=== PATIENT | female | born 1995 | race African-American/Black ===

== ENCOUNTER 2017-12-06 06:36 | Inpatient (IN) | payer MEDICAID ==
[~2017-12-06] VITALS: Ht 165.1 cm; Wt 77.1 kg
[2017-12-06 06:40] VITALS: BP 124/76
[2017-12-06] MEDS ORDERED: levETIRAcetam 500mg/NS100ml 100 ML IVPB ONE (06:45)
[2017-12-06] MEDS ORDERED: LORazepam Inj 2mg/ml 1ml IV ONE (06:45)
[2017-12-06 06:48] LABS: HEMATOCRIT 43.5 % (37.0-47.0); HEMOGLOBIN 14.7 G/DL (12.0-16.0); MEAN CORPUSCULAR VOLUME 89 FL (80-99); PLATELET COUNT 307 K/UL (150-450); RED BLOOD COUNT 4.87 M/UL (4.20-5.40); RED CELL DISTRIBUTION WIDTH 12.1 % (11.6-14.8); WHITE BLOOD COUNT 12.8 K/UL (4.8-10.8)
[2017-12-06 07:06] LABS: ANION GAP 7 mmol/L (5-15); BLOOD UREA NITROGEN 15 mg/dL (7-18); CALCIUM 8.8 MG/DL (8.5-10.1); CARBON DIOXIDE 29 MMOL/L (21-32); CHLORIDE 104 MMOL/L (98-107); CREATININE 0.8 MG/DL (0.55-1.30); POTASSIUM 3.8 MMOL/L (3.5-5.1); SODIUM 140 MMOL/L (136-145)
[2017-12-06 07:11] LABS: ALANINE AMINOTRANSFERASE 35 U/L (12-78); ALBUMIN 3.7 G/DL (3.4-5.0); ALKALINE PHOSPHATASE 82 U/L (46-116); ASPARTATE AMINO TRANSFERASE 20 U/L (15-37); BILIRUBIN,TOTAL 0.4 MG/DL (0.2-1.0); CKMB 1.9 NG/ML (0.0-3.6); CREATINE KINASE 261 U/L (26-308)
--- NOTE | 2017-12-06 08:22 | Diagnostic Imaging Report ---
Indication: Shortness of breath Technique: XRAY Chest 1v Comparison: None Findings: Heart is enlarged with somewhat globular contour. There is no focal airspace consolidation, pleural effusion or pneumothorax. No acute osseous abnormality appreciated. Impression: Cardiomegaly. Pericardial effusion cannot be excluded. Correlate clinically. No focal airspace consolidation.
[2017-12-06 08:26] LABS: APPEARANCE,URINE CLEAR; BILIRUBIN, URINE NEGATIVE (NEGATIVE); COLOR,URINE PALE YELLOW; GLUCOSE, URINE (UA) NEGATIVE (NEGATIVE); KETONES,URINE 2+ (NEGATIVE); LEUKOCYTE ESTERASE ,URINE NEGATIVE (NEGATIVE); NITRITE,URINE NEGATIVE (NEGATIVE); PH,URINE 8 (4.5-8.0); PROTEIN,URINE NEGATIVE (NEGATIVE); UROBILINOGEN,URINE NORMAL MG/DL (0.0-1.0)
--- NOTE | 2017-12-06 08:26 | Diagnostic Imaging Report ---
Indication: Seizure Technique: Continuous helical CT scanning of the head was performed utilizing automated exposure control without intravenous contrast material. Axial and coronal reconstructions were obtained. Comparison: None CT dose: Total DLP 1393.68 mGycm; CTDI vol 70.38 mGy Findings: There is no acute intracranial hemorrhage, mass effect or cortical edema. The ventricles, cisterns and sulci are normal for age. Visualized mastoid air cells and paranasal sinuses are unremarkable. No focal lesions of the bony calvarium or soft tissues of the scalp are seen. IMPRESSION: No evidence of acute intracranial hemorrhage, mass effect or cortical edema. MRI may be obtained for more sensitive evaluation as clinically indicated. The CT scanner at [facility] is accredited by the [employer] and the scans are performed using protocols designed to limit radiation exposure to as low as reasonably achievable to attain images of sufficient resolution adequate for diagnostic evaluation.
[2017-12-06 09:00] VITALS: BP 121/72
--- NOTE | 2017-12-06 09:58 | Emergency Room Report ---
History of Present Illness General Chief Complaint: Seizure Source: Patient, EMS Present Illness HPI Patient present with reports of seizure activity She reports being seen yesterday at another hospital She has a history of seizures and is on Keppra Patient had 2 more seizures at the facility she resides in Had another seizure this morning at the hospital Denies any chest pain or short of breath She had a mild headache patient also had trauma to her head after the injury today Denies any focal deficit Allergies: Coded Allergies: No Known Allergies (Unverified , 12/06/17) Patient History Past Medical History: see triage record Pertinent Family History: none Reviewed Nursing Documentation: PMH: Agreed, PSxH: Agreed Nursing Documentation-PMH Past Medical History: No History, Except For Hx Seizures: Yes Review of Systems All Other Systems: negative except mentioned in HPI Physical Exam Vital Signs Date Time Temp Pulse Resp B/P (MAP) Pulse Ox O2 Delivery O2 Flow Rate FiO2 12/06/17 06:12 99.0 88 16 124/76 99 Room Air 99.0 Sp02 EP Interpretation: reviewed, normal General Appearance: well appearing, no apparent distress Head: normocephalic, atraumatic Eyes: bilateral eye PERRL, bilateral eye EOMI ENT: hearing grossly normal, TMs + canals normal, uvula midline, other - Evidence of oral trauma Neck: full range of motion, supple, no meningismus, no bony tend Respiratory: lungs clear, normal breath sounds, no rhonchi, no respiratory distress, no retraction, no accessory muscle use Cardiovascular #1: normal peripheral pulses, regular rate, rhythm, no edema, no gallop, no JVD, no murmur Gastrointestinal: normal bowel sounds, non tender, soft, no mass, no organomegaly, non-distended, no guarding, no hernia, no pulsatile mass, no rebound Genitourinary: no CVA tenderness Musculoskeletal: normal inspection Neurologic: oriented x3, responsive, alto singer III-XII nml as tested, motor strength/ tone normal, sensory intact Psychiatric: mood/affect normal Skin: normal color, no rash, warm/dry, palpation normal Lymphatic: normal inspection, no adenopathy Medical Decision Making Diagnostic Impression: Primary Impression: Epileptic seizure, generalized ER Course Given the patient's trauma and multiple seizures CT imaging was obtained Does not show any acute pathology Patient was provided with IV medication Blood work are appropriate and patient admitted for further care Labs Test 12/06/17 06:30 12/06/17 08:15 White Blood Count 12.8 K/UL (4.8-10.8) Red Blood Count 4.87 M/UL (4.20-5.40) Hemoglobin 14.7 G/DL (12.0-16.0) Hematocrit 43.5 % (37.0-47.0) Mean Corpuscular Volume 89 FL (80-99) Mean Corpuscular Hemoglobin 30.2 PG (27.0-31.0) Mean Corpuscular Hemoglobin Concent 33.8 G/DL (32.0-36.0) Red Cell Distribution Width 12.1 % (11.6-14.8) Platelet Count 307 K/UL (150-450) Mean Platelet Volume 5.7 FL (6.5-10.1) Neutrophils (%) (Auto) % (45.0-75.0) Lymphocytes (%) (Auto) % (20.0-45.0) Monocytes (%) (Auto) % (1.0-10.0) Eosinophils (%) (Auto) % (0.0-3.0) Basophils (%) (Auto) % (0.0-2.0) Differential Total Cells Counted 100 Neutrophils % (Manual) 90 % (45-75) Lymphocytes % (Manual) 6 % (20-45) Monocytes % (Manual) 4 % (1-10) Eosinophils % (Manual) 0 % (0-3) Basophils % (Manual) 0 % (0-2) Band Neutrophils 0 % (0-8) Platelet Estimate Adequate Platelet Morphology Normal Red Blood Cell Morphology Normal Sodium Level 140 MMOL/L (136-145) Potassium Level 3.8 MMOL/L (3.5-5.1) Chloride Level 104 MMOL/L (98-107) Carbon Dioxide Level 29 MMOL/L (21-32) Anion Gap 7 mmol/L (5-15) Blood Urea Nitrogen 15 mg/dL (7-18) Creatinine 0.8 MG/DL (0.55-1.30) Estimat Glomerular Filtration Rate > 60 mL/min (>60) Glucose Level 131 MG/DL (74-106) Calcium Level 8.8 MG/DL (8.5-10.1) Total Bilirubin 0.4 MG/DL (0.2-1.0) Aspartate Amino Transf (AST/SGOT) 20 U/L (15-37) Alanine Aminotransferase (ALT/SGPT) 35 U/L (12-78) Alkaline Phosphatase 82 U/L (46-116) Total Creatine Kinase 261 U/L (26-308) Creatine Kinase MB 1.9 NG/ML (0.0-3.6) Creatine Kinase MB Relative Index 0.7 Total Protein 7.5 G/DL (6.4-8.2) Albumin 3.7 G/DL (3.4-5.0) Globulin 3.8 g/dL Albumin/Globulin Ratio 1.0 (1.0-2.7) Lipase 70 U/L (73-393) Urine Color Pale yellow Urine Appearance Clear Urine pH 8 (4.5-8.0) Urine Specific [place] 1.010 (1.005-1.035) Urine Protein Negative (NEGATIVE) Urine Glucose (UA) Negative (NEGATIVE) Urine Ketones 2+ (NEGATIVE) Urine Occult Blood 1+ (NEGATIVE) Urine Nitrite Negative (NEGATIVE) Urine Bilirubin Negative (NEGATIVE) Urine Urobilinogen Normal MG/DL (0.0-1.0) Urine Leukocyte Esterase Negative (NEGATIVE) Urine RBC 0-2 /HPF (0 - 2) Urine WBC 0-2 /HPF (0 - 2) Urine Squamous Epithelial Cells Few /LPF (NONE/OCC) Urine Bacteria Occasional /HPF (NONE) Urine HCG, Qualitative Negative (NEGATIVE) Urine Opiates Screen Negative (NEGATIVE) Urine Barbiturates Screen Negative (NEGATIVE) Phencyclidine (PCP) Screen Negative (NEGATIVE) Urine Amphetamines Screen Negative (NEGATIVE) Urine Benzodiazepines Screen Negative (NEGATIVE) Urine Cocaine Screen Negative (NEGATIVE) Urine Marijuana (THC) Screen Positive (NEGATIVE) Rhythm Strip Diag. Results EP Interpretation: yes Rate: 78 Rhythm: NSR, no PVC's, no ectopy Chest X-Ray Diagnostic Results Chest X-Ray Diagnostic Results : Chest X-Ray Ordered: Yes # of Views/Limited/Complete: 1 View Indication: Chest Pain EP Interpretation: Yes Interpretation: no consolidation, no effusion, no pneumothorax Impression: No acute disease Electronically Signed by: Gus Arevalo, DO CT/MRI/US Diagnostic Results CT/MRI/US Diagnostic Results : Impression CT head no acute disease Last Vital Signs Date Time Temp Pulse Resp B/P (MAP) Pulse Ox O2 Delivery O2 Flow Rate FiO2 12/06/17 06:40 99.0 88 16 124/76 99 Room Air 99.0 Status: improved Disposition: ADMITTED INPATIENT Condition: Serious Referrals: NOT CHOSEN IPA/,REFERRING (PCP) Gus Arevalo DO Dec 06, 2017 09:58
[2017-12-06 10:51] VITALS: BP 117/80
[2017-12-06 12:00] VITALS: BP 108/62
[2017-12-06] MEDS ORDERED: D5 1/2NS 1,000 ML IV SCH (12:30)
[2017-12-06] MEDS: D5 1/2NS 1,000 ML IV SCH (14:46)
[2017-12-06 16:00] VITALS: BP 98/70
--- NOTE | 2017-12-06 16:15 | Neurology Progress Note ---
Objective Physical Exam Last Vital Signs Date Time Temp Pulse Resp B/P (MAP) Pulse Ox O2 Delivery O2 Flow Rate FiO2 12/06/17 12:00 98.2 89 19 108/62 100 98.2 12/06/17 11:22 Room Air Laboratory Tests Test 12/06/17 06:30 12/06/17 08:15 White Blood Count 12.8 K/UL (4.8-10.8) H Red Blood Count 4.87 M/UL (4.20-5.40) Hemoglobin 14.7 G/DL (12.0-16.0) Hematocrit 43.5 % (37.0-47.0) Mean Corpuscular Volume 89 FL (80-99) Mean Corpuscular Hemoglobin 30.2 PG (27.0-31.0) Mean Corpuscular Hemoglobin Concent 33.8 G/DL (32.0-36.0) Red Cell Distribution Width 12.1 % (11.6-14.8) Platelet Count 307 K/UL (150-450) Mean Platelet Volume 5.7 FL (6.5-10.1) L Neutrophils (%) (Auto) % (45.0-75.0) Lymphocytes (%) (Auto) % (20.0-45.0) Monocytes (%) (Auto) % (1.0-10.0) Eosinophils (%) (Auto) % (0.0-3.0) Basophils (%) (Auto) % (0.0-2.0) Differential Total Cells Counted 100 Neutrophils % (Manual) 90 % (45-75) H Lymphocytes % (Manual) 6 % (20-45) L Monocytes % (Manual) 4 % (1-10) Eosinophils % (Manual) 0 % (0-3) Basophils % (Manual) 0 % (0-2) Band Neutrophils 0 % (0-8) Platelet Estimate Adequate Platelet Morphology Normal Red Blood Cell Morphology Normal Sodium Level 140 MMOL/L (136-145) Potassium Level 3.8 MMOL/L (3.5-5.1) Chloride Level 104 MMOL/L (98-107) Carbon Dioxide Level 29 MMOL/L (21-32) Anion Gap 7 mmol/L (5-15) Blood Urea Nitrogen 15 mg/dL (7-18) Creatinine 0.8 MG/DL (0.55-1.30) Estimat Glomerular Filtration Rate > 60 mL/min (>60) Glucose Level 131 MG/DL (74-106) H Calcium Level 8.8 MG/DL (8.5-10.1) Total Bilirubin 0.4 MG/DL (0.2-1.0) Aspartate Amino Transf (AST/SGOT) 20 U/L (15-37) Alanine Aminotransferase (ALT/SGPT) 35 U/L (12-78) Alkaline Phosphatase 82 U/L (46-116) Total Creatine Kinase 261 U/L (26-308) Creatine Kinase MB 1.9 NG/ML (0.0-3.6) Creatine Kinase MB Relative Index 0.7 Total Protein 7.5 G/DL (6.4-8.2) Albumin 3.7 G/DL (3.4-5.0) Globulin 3.8 g/dL Albumin/Globulin Ratio 1.0 (1.0-2.7) Lipase 70 U/L (73-393) L Urine Color Pale yellow Urine Appearance Clear Urine pH 8 (4.5-8.0) Urine Specific [place] 1.010 (1.005-1.035) Urine Protein Negative (NEGATIVE) Urine Glucose (UA) Negative (NEGATIVE) Urine Ketones 2+ (NEGATIVE) H Urine Occult Blood 1+ (NEGATIVE) H Urine Nitrite Negative (NEGATIVE) Urine Bilirubin Negative (NEGATIVE) Urine Urobilinogen Normal MG/DL (0.0-1.0) Urine Leukocyte Esterase Negative (NEGATIVE) Urine RBC 0-2 /HPF (0 - 2) Urine WBC 0-2 /HPF (0 - 2) Urine Squamous Epithelial Cells Few /LPF (NONE/OCC) Urine Bacteria Occasional /HPF (NONE) Urine HCG, Qualitative Negative (NEGATIVE) Urine Opiates Screen Negative (NEGATIVE) Urine Barbiturates Screen Negative (NEGATIVE) Phencyclidine (PCP) Screen Negative (NEGATIVE) Urine Amphetamines Screen Negative (NEGATIVE) Urine Benzodiazepines Screen Negative (NEGATIVE) Urine Cocaine Screen Negative (NEGATIVE) Urine Marijuana (THC) Screen Positive (NEGATIVE) H Impression/Recommendations Problems: (1) Epileptic seizure, generalized Recommendations #[id number] MICHELINE PARKER Dec 06, 2017 16:15
--- NOTE | 2017-12-06 19:30 | History and Physical Report ---
DATE OF ADMISSION: 12/06/2017 APPROXIMATE TIME: 9 a.m. CONSULTANTS: Moncho Rodarte M.D. CHIEF COMPLAINT: Seizure x4. BRIEF HISTORY: The patient is a 22-year-old female, who lives at home, presents with seizure yesterday x4, currently postictal in the ER gurney, not talking much. Mother at bedside. REVIEW OF SYSTEMS: Unavailable. PAST MEDICAL HISTORY: Includes seizure. PAST SURGICAL HISTORY: None. MEDICATIONS: Include lorazepam, IV fluids. ALLERGIES: Denies. SOCIAL HISTORY: No smoking. No alcohol. No intravenous drug abuse. FAMILY HISTORY: Noncontributory. PHYSICAL EXAMINATION: GENERAL: Lethargic in bed, awake but not responding to questions. VITAL SIGNS: Temperature is 99, pulse 88, respirations 16, blood pressure 124/76. CARDIOVASCULAR: No murmur. LUNGS: Distant and clear. ABDOMEN: Bowel sound distant. Nontender and nondistended. EXTREMITIES: No cyanosis, clubbing, or edema. NEUROLOGIC: The patient moves all extremities. Right knee movement but not following directions. LABORATORY AND DIAGNOSTIC DATA: White count 12.8, otherwise CBC is normal. BMP shows glucose 131 and lipase 70, otherwise normal. Urinalysis 2+ ketone, 1+ occult blood, otherwise normal. Urine toxicology is positive marijuana. ASSESSMENT: 1. Seizure, postictal. 2. Leukocytosis. PLAN: 1. Continue previous medications. 2. Neurology followup. 3. Seizure control. 4. We will continue to follow this patient. 5. OT, PT, dietary evaluation. 6. CBC and BMP in the morning. Jeff Fraser D.O. DR: Gala JOB#: [id number] CC:
[2017-12-06] MEDS ORDERED: LORazepam Inj 2mg/ml 1ml IV PRN (19:45)
[2017-12-06 21:00] VITALS: BP 123/70
--- NOTE | 2017-12-06 23:30 | Consultation ---
DATE OF CONSULTATION: 12/06/2017 NEUROLOGICAL CONSULTATION CONSULTING PHYSICIAN: Moncho Rodarte M.D. REQUESTING PHYSICIAN: Jeff Fraser D.O. REASON FOR CONSULTATION: This is a 22-year-old female, seen in neurological consultation to evaluate exacerbation of seizure disorder. HISTORY OF PRESENT ILLNESS: The patient informed me that she is suffering from chronic seizure disorder since age of 16, initially only "small" episodes, but in the last few months, they became more frequent, "generalized" with convulsions, loss of consciousness, and tongue biting. Yesterday while at the front apartment, she developed two generalized seizures. Paramedics were called to the scene and upon [facility] arrival, she was postictal with tongue bitten, possible incontinence, she was oriented x3, she had no complaints of pain. Her blood pressure 142/88, heart rate of 116, respiration 14. She was brought to the emergency room where she reported that she has been seen at [facility] as she had two seizures. On arrival, she had mild headache, her vital signs remained stable, temperature 99. Stat CT of the brain was obtained and revealed no intracranial abnormalities. Her lab work included a CBC study with WBC of 12.8, otherwise normal. Urinalysis unremarkable. Toxicology panel, positive for marijuana. Chemistry panel was unremarkable except blood sugar 131. Following admission until present, the patient was given extra dose of Keppra 500 mg IVPB, Ativan, placed on normal saline. No further seizure was reported. PAST MEDICAL HISTORY: The patient has no major medical problems except chronic seizure disorder which she attributed to the fact that she was born from drug-addict parents. Her mother from overdose. Her father still alive and lives in [place], he has drug abuse issue. SOCIAL HISTORY: The patient lives with her friends, unemployed, she dropped out from senior school classes because "it was useless." She felt that she has some memory issues. MEDICATIONS: The patient's previous treatment included Topamax and Lamictal, both causing her allergic reaction and rash. She has no recollection of other medications except now, she is on Keppra for the last month, she is on 500 mg b.i.d. Frequency of seizures overall about one per month. FAMILY HISTORY: As mentioned, both parents drug addicts. Mother from overdose. REVIEW OF SYMPTOMS: Aches and pains in her both lower extremities, bitten tongue. No headache. No dizziness. No chest pain. No palpitations. No respiratory problems. PHYSICAL EXAMINATION: GENERAL: A well-developed, well-nourished, young female, not in acute distress, lying comfortably in bed. VITAL SIGNS: Now are stable. Blood pressure 108/62, heart rate of 89, afebrile. HEENT: Head normocephalic: There is significant bitten both sides of the tongue. No otorrhea. No rhinorrhea. NECK: Supple. No meningeal signs. MUSCULOSKELETAL: Palpable tenderness diffusely in both lower extremities. The patient moans and groans when moving her legs . This occurred since she had a seizure. MENTAL STATUS EXAMINATION: The patient is alert and oriented x3. Her speech is fluent although somewhat slurred with bitten tongue. She is a poor historian, forgetful, admitted having problem with her memory since school. She was able to follow command. CRANIAL NERVE II: Pupils both responding to light and accommodation. Extraocular movements intact. No nystagmus. CRANIAL NERVE V: Normal corneal responses. CRANIAL NERVE VII: No facial asymmetry. CRANIAL NERVE VIII: Grossly normal hearing. CRANIAL NERVES IX THROUGH XII: Within normal limits. MOTOR EXAMINATION: Normal muscle tone and strength 5/5 in all extremities. No involuntary movement. Deep tendon reflexes 1+ and symmetric with downgoing toes on both sides. SENSORY EXAMINATION: Normal to pinprick and light touch. Gait not tested, but reported able to ambulate to the bathroom and back without assistance. IMPRESSION: Chronic seizure disorder exacerbation. DISCUSSION: The patient has baseline mild cognitive impairment and developed seizures since she was teenager, presents with recurrent generalized seizures what appears to be breakthrough from treatment with Keppra 500 mg b.i.d. We will observe for the following days. The patient had previous MRI studies which were nondiagnostic. The patient will be observed for any paroxysmal events. manager field services will request for the patient's placement. Thank you for allowing me to see this interesting patient in neurological consultation. Moncho Rodarte M.D. DR: Yomaira JOB#: [id number] CC:
[2017-12-07 04:00] VITALS: BP 109/54
[2017-12-07] MEDS: D5 1/2NS 1,000 ML IV SCH (05:05)
[2017-12-07 07:55] LABS: BASOPHILS % (AUTO) 0.4 % (0.0-2.0); EOSINOPHILS % (AUTO) 2.2 % (0.0-3.0); HEMATOCRIT 39.7 % (37.0-47.0); HEMOGLOBIN 13.5 G/DL (12.0-16.0); LYMPHOCYTES % (AUTO) 31.3 % (20.0-45.0); MEAN CORPUSCULAR VOLUME 89 FL (80-99); NEUTROPHILS % (AUTO) 57.1 % (45.0-75.0); PLATELET COUNT 273 K/UL (150-450); RED BLOOD COUNT 4.47 M/UL (4.20-5.40); RED CELL DISTRIBUTION WIDTH 12.1 % (11.6-14.8); WHITE BLOOD COUNT 7.2 K/UL (4.8-10.8)
[2017-12-07 08:00] VITALS: BP 106/60
[2017-12-07 08:21] LABS: ANION GAP 9 mmol/L (5-15); BLOOD UREA NITROGEN 8 mg/dL (7-18); CALCIUM 8.4 MG/DL (8.5-10.1); CARBON DIOXIDE 27 MMOL/L (21-32); CHLORIDE 106 MMOL/L (98-107); CREATININE 0.6 MG/DL (0.55-1.30); POTASSIUM 3.4 MMOL/L (3.5-5.1); SODIUM 142 MMOL/L (136-145)
--- NOTE | 2017-12-07 10:53 | Neurology Progress Note ---
Interim History Interim History ROS Limited/Unobtainable: No Complaints: abdomen,leg pain, slight PRO Events: no sz noted Objective Physical Exam Last Vital Signs Date Time Temp Pulse Resp B/P (MAP) Pulse Ox O2 Delivery O2 Flow Rate FiO2 12/07/17 08:00 97.7 88 20 106/60 96 97.7 12/07/17 00:00 Room Air Laboratory Tests Test 12/07/17 04:50 White Blood Count 7.2 K/UL (4.8-10.8) Red Blood Count 4.47 M/UL (4.20-5.40) Hemoglobin 13.5 G/DL (12.0-16.0) Hematocrit 39.7 % (37.0-47.0) Mean Corpuscular Volume 89 FL (80-99) Mean Corpuscular Hemoglobin 30.3 PG (27.0-31.0) Mean Corpuscular Hemoglobin Concent 34.1 G/DL (32.0-36.0) Red Cell Distribution Width 12.1 % (11.6-14.8) Platelet Count 273 K/UL (150-450) Mean Platelet Volume 6.1 FL (6.5-10.1) L Neutrophils (%) (Auto) 57.1 % (45.0-75.0) Lymphocytes (%) (Auto) 31.3 % (20.0-45.0) Monocytes (%) (Auto) 9.0 % (1.0-10.0) Eosinophils (%) (Auto) 2.2 % (0.0-3.0) Basophils (%) (Auto) 0.4 % (0.0-2.0) Sodium Level 142 MMOL/L (136-145) Potassium Level 3.4 MMOL/L (3.5-5.1) L Chloride Level 106 MMOL/L (98-107) Carbon Dioxide Level 27 MMOL/L (21-32) Anion Gap 9 mmol/L (5-15) Blood Urea Nitrogen 8 mg/dL (7-18) Creatinine 0.6 MG/DL (0.55-1.30) Estimat Glomerular Filtration Rate > 60 mL/min (>60) Glucose Level 93 MG/DL (74-106) Calcium Level 8.4 MG/DL (8.5-10.1) L Levetiracetam (Keppra) Level Pending General: well developed, no acute distress, other - tenderness BLE Head: normocophalic, other - R face bruized Neck: no rigidity Neurologic Exam Mental Status: awake, alert, other - poor historian Speech: normal speech, no dysarthia Language: normal language, no aphasia Cranial Nerve II: fundus normal, visual shaver, no papilledema Cranial Nerves III, IV, : PERRLA, EOMI, pupils Cranial Nerve V: normal facial sensations, temporales function normal, masseters function normal, pterygoids function normal Cranial Nerve VII: no facial asymmetry, normal facial expressions Cranial Nerve VIII: normal hearing, no nystagmus Cranial Nerve IX: normal palate elevation, gag response Cranial Nerve X: no voice hoarseness Cranial Nerve XI: SCM symmetric, trapezii function normal Cranial Nerve XII: tongue midline, no tongue atrophy/fasciculations Motor System: normal muscle tone, strength 5/5, no involuntary movement, no muscle wasting Sensory: normal pinprick, normal light touch, normal position sense, normal graphesthesia Coordination: normal finger to nose bilaterally, normal heel to finnegan bilaterally, negative Romberg test Deep Tendon Reflexes: 2+ bicep (L), 2+ bicep (R), 2+ tricep (L), 2+ tricep (R) , 2+ brachioradialis (L), 2+ brachioradialis (R), 2+ knee (L), 2+ knee (R), 2+ ankle (L), 2+ ankle (R) Reflexes: flexor plantar (L), flexor plantar (R) Stance: normal Gait: stable, normal regular, heel + toe gait, other - wabble antalgic Impression/Recommendations Problems: (1) Epileptic seizure, generalized Status: unchanged Recommendations # #[id number] bid motrin 600mg tid for pain MICHELINE PARKER Dec 07, 2017 10:53
[2017-12-07 11:35] VITALS: BP 103/60
--- NOTE | 2017-12-07 14:38 | General Progress Note ---
Assessment/Plan Problem List: (1) Epileptic seizure, generalized ICD Codes: G40.309 - Generalized idiopathic epilepsy and epileptic syndromes, not intractable, without status epilepticus SNOMED: 40434001 Status: stable, progressing, tolerating diet Assessment/Plan seizure control neuro follow up cbc bmp am dc if neuro clears Subjective Constitutional: Reports: weakness Allergies: Coded Allergies: No Known Allergies (Unverified , 12/06/17) All Systems: reviewed and negative except above Subjective calm no seizure this am Objective Last 24 Hour Vital Signs Date Time Temp Pulse Resp B/P (MAP) Pulse Ox O2 Delivery O2 Flow Rate FiO2 12/07/17 11:35 97.0 71 19 103/60 96 Room Air 97.0 12/07/17 08:00 Room Air 12/07/17 08:00 97.7 88 20 106/60 96 97.7 12/07/17 04:00 97.7 86 20 109/54 95 97.7 12/07/17 00:00 Room Air 12/06/17 21:00 97.7 88 16 123/70 95 97.7 12/06/17 20:00 Room Air 12/06/17 16:00 96.4 92 20 98/70 96 96.4 Intake and Output 12/06/17 12/07/17 19:00 07:00 Intake Total 1370 ml 720 ml Balance 1370 ml 720 ml Intake Oral 90 ml IV Total 1280 ml 720 ml # Voids 1 3 # Bowel Movements 1 Laboratory Tests 12/07/17 04:50: White Blood Count 7.2, Red Blood Count 4.47, Hemoglobin 13.5, Hematocrit 39.7, Mean Corpuscular Volume 89, Mean Corpuscular Hemoglobin 30.3, Mean Corpuscular Hemoglobin Concent 34.1, Red Cell Distribution Width 12.1, Platelet Count 273, Mean Platelet Volume 6.1L, Neutrophils (%) (Auto) 57.1, Lymphocytes (%) (Auto) 31.3, Monocytes (%) (Auto) 9.0, Eosinophils (%) (Auto) 2.2, Basophils (%) (Auto ) 0.4, Sodium Level 142, Potassium Level 3.4L, Chloride Level 106, Carbon Dioxide Level 27, Anion Gap 9, Blood Urea Nitrogen 8, Creatinine 0.6, Estimat Glomerular Filtration Rate > 60, Glucose Level 93, Calcium Level 8.4L, Levetiracetam (Keppra) Level [Pending] Height (Feet): 5 Height (Inches): 5.00 Weight (Pounds): 170 General Appearance: alert EENT: normal ENT inspection Neck: normal alignment Cardiovascular: normal peripheral pulses, normal rate, regular rhythm Respiratory/Chest: chest wall non-tender, lungs clear, normal breath sounds Abdomen: normal bowel sounds, non tender, soft Extremities: normal inspection Edema: no edema noted Arm (L), no edema noted Arm (R), no edema noted Leg (L), no edema noted Leg (R), no edema noted Pedal (L), no edema noted Pedal (R), no edema noted Generalized Neurologic: responsive, motor weakness Skin: normal pigmentation, warm/dry ULISES REINA Dec 07, 2017 14:38
[2017-12-07 15:53] VITALS: BP 103/58
[2017-12-07 19:30] VITALS: BP 97/61
[2017-12-07 23:28] VITALS: BP 101/63
[2017-12-08] MEDS: D5 1/2NS 1,000 ML IV SCH ×2 (00:05→03:50)
[2017-12-08 03:36] VITALS: BP 109/60
[2017-12-08 07:44] LABS: BASOPHILS % (AUTO) 0.6 % (0.0-2.0); EOSINOPHILS % (AUTO) 2.4 % (0.0-3.0); HEMATOCRIT 41.2 % (37.0-47.0); LYMPHOCYTES % (AUTO) 27.7 % (20.0-45.0); MEAN CORPUSCULAR VOLUME 89 FL (80-99); MONOCYTES % (AUTO) 9.6 % (1.0-10.0); NEUTROPHILS % (AUTO) 59.8 % (45.0-75.0); PLATELET COUNT 274 K/UL (150-450); RED BLOOD COUNT 4.61 M/UL (4.20-5.40); RED CELL DISTRIBUTION WIDTH 12.2 % (11.6-14.8); WHITE BLOOD COUNT 7.4 K/UL (4.8-10.8)
[2017-12-08 07:54] LABS: ANION GAP 7 mmol/L (5-15); BLOOD UREA NITROGEN 6 mg/dL (7-18); CALCIUM 8.5 MG/DL (8.5-10.1); CARBON DIOXIDE 30 MMOL/L (21-32); CHLORIDE 107 MMOL/L (98-107); CREATININE 0.6 MG/DL (0.55-1.30); POTASSIUM 3.8 MMOL/L (3.5-5.1); SODIUM 144 MMOL/L (136-145)
[2017-12-08 08:09] VITALS: BP 108/71
[2017-12-08 12:09] VITALS: BP 102/74
--- NOTE | 2017-12-08 12:44 | Neurology Progress Note ---
Interim History Interim History ROS Limited/Unobtainable: No Complaints: feel better Events: no sz noted Objective Physical Exam Last Vital Signs Date Time Temp Pulse Resp B/P (MAP) Pulse Ox O2 Delivery O2 Flow Rate FiO2 12/08/17 12:09 97.2 74 16 102/74 97 Room Air 97.2 Laboratory Tests Test 12/08/17 05:35 White Blood Count 7.4 K/UL (4.8-10.8) Red Blood Count 4.61 M/UL (4.20-5.40) Hemoglobin 14.0 G/DL (12.0-16.0) Hematocrit 41.2 % (37.0-47.0) Mean Corpuscular Volume 89 FL (80-99) Mean Corpuscular Hemoglobin 30.3 PG (27.0-31.0) Mean Corpuscular Hemoglobin Concent 34.0 G/DL (32.0-36.0) Red Cell Distribution Width 12.2 % (11.6-14.8) Platelet Count 274 K/UL (150-450) Mean Platelet Volume 6.4 FL (6.5-10.1) L Neutrophils (%) (Auto) 59.8 % (45.0-75.0) Lymphocytes (%) (Auto) 27.7 % (20.0-45.0) Monocytes (%) (Auto) 9.6 % (1.0-10.0) Eosinophils (%) (Auto) 2.4 % (0.0-3.0) Basophils (%) (Auto) 0.6 % (0.0-2.0) Sodium Level 144 MMOL/L (136-145) Potassium Level 3.8 MMOL/L (3.5-5.1) Chloride Level 107 MMOL/L (98-107) Carbon Dioxide Level 30 MMOL/L (21-32) Anion Gap 7 mmol/L (5-15) Blood Urea Nitrogen 6 mg/dL (7-18) L Creatinine 0.6 MG/DL (0.55-1.30) Estimat Glomerular Filtration Rate > 60 mL/min (>60) Glucose Level 90 MG/DL (74-106) Calcium Level 8.5 MG/DL (8.5-10.1) General: well developed, no acute distress, other - tenderness BLE Head: normocophalic, other - R face bruized Neck: no rigidity Neurologic Exam Mental Status: awake, alert, other - poor historian Speech: normal speech, no dysarthia Language: normal language, no aphasia Cranial Nerve II: fundus normal, visual shaver, no papilledema Cranial Nerves III, IV, : PERRLA, EOMI, pupils Cranial Nerve V: normal facial sensations, temporales function normal, masseters function normal, pterygoids function normal Cranial Nerve VII: no facial asymmetry, normal facial expressions Cranial Nerve VIII: normal hearing, no nystagmus Cranial Nerve IX: normal palate elevation, gag response Cranial Nerve X: no voice hoarseness Cranial Nerve XI: SCM symmetric, trapezii function normal Cranial Nerve XII: tongue midline, no tongue atrophy/fasciculations Motor System: normal muscle tone, strength 5/5, no involuntary movement, no muscle wasting Sensory: normal pinprick, normal light touch, normal position sense, normal graphesthesia Coordination: normal finger to nose bilaterally, normal heel to finnegan bilaterally, negative Romberg test Deep Tendon Reflexes: 2+ bicep (L), 2+ bicep (R), 2+ tricep (L), 2+ tricep (R) , 2+ brachioradialis (L), 2+ brachioradialis (R), 2+ knee (L), 2+ knee (R), 2+ ankle (L), 2+ ankle (R) Reflexes: flexor plantar (L), flexor plantar (R) Stance: normal Gait: stable, normal regular, heel + toe gait, other - wabble antalgic Impression/Recommendations Problems: (1) Epileptic seizure, generalized Status: stable, progressing, tolerating diet Recommendations # #[id number] bid motrin 600mg tid for pain ok to d/c home MICHELINE PARKER Dec 08, 2017 12:44
--- NOTE | 2017-12-08 14:21 | General Progress Note ---
Assessment/Plan Problem List: (1) Epileptic seizure, generalized ICD Codes: G40.309 - Generalized idiopathic epilepsy and epileptic syndromes, not intractable, without status epilepticus SNOMED: [id number] Status: stable, progressing, tolerating diet Assessment/Plan seizure control neuro follow up dc if neuro clears Subjective Constitutional: Reports: weakness Allergies: Coded Allergies: No Known Allergies (Unverified , 12/06/17) All Systems: reviewed and negative except above Subjective calm no seizure this am Objective Last 24 Hour Vital Signs Date Time Temp Pulse Resp B/P (MAP) Pulse Ox O2 Delivery O2 Flow Rate FiO2 12/08/17 12:09 97.2 74 16 102/74 97 Room Air 97.2 12/08/17 08:09 97.5 79 18 108/71 99 Room Air 97.5 12/08/17 04:00 Room Air 12/08/17 03:36 97.6 60 20 109/60 95 Room Air 97.6 12/08/17 00:00 Room Air 12/07/17 23:28 97.7 65 20 101/63 97 Room Air 97.7 12/07/17 20:00 Room Air 12/07/17 19:30 97.7 62 20 97/61 96 Room Air 97.7 12/07/17 15:53 97.7 62 18 103/58 98 97.7 12/07/17 15:53 Room Air Intake and Output 12/07/17 12/08/17 19:00 07:00 Intake Total 1420 ml 1260 ml Balance 1420 ml 1260 ml Intake Oral 700 ml 600 ml IV Total 720 ml 660 ml # Voids 3 3 # Bowel Movements 1 3 Laboratory Tests 12/08/17 05:35: White Blood Count 7.4, Red Blood Count 4.61, Hemoglobin 14.0, Hematocrit 41.2, Mean Corpuscular Volume 89, Mean Corpuscular Hemoglobin 30.3, Mean Corpuscular Hemoglobin Concent 34.0, Red Cell Distribution Width 12.2, Platelet Count 274, Mean Platelet Volume 6.4L, Neutrophils (%) (Auto) 59.8, Lymphocytes (%) (Auto) 27.7, Monocytes (%) (Auto) 9.6, Eosinophils (%) (Auto) 2.4, Basophils (%) (Auto ) 0.6, Sodium Level 144, Potassium Level 3.8, Chloride Level 107, Carbon Dioxide Level 30, Anion Gap 7, Blood Urea Nitrogen 6L, Creatinine 0.6, Estimat Glomerular Filtration Rate > 60, Glucose Level 90, Calcium Level 8.5 Height (Feet): 5 Height (Inches): 5.00 Weight (Pounds): 170 General Appearance: lethargic EENT: normal ENT inspection Neck: normal alignment Cardiovascular: normal peripheral pulses, normal rate, regular rhythm Respiratory/Chest: chest wall non-tender, lungs clear, normal breath sounds Abdomen: normal bowel sounds, non tender, soft Extremities: normal inspection Edema: no edema noted Arm (L), no edema noted Arm (R), no edema noted Leg (L), no edema noted Leg (R), no edema noted Pedal (L), no edema noted Pedal (R), no edema noted Generalized Neurologic: motor weakness Skin: normal pigmentation, warm/dry ULISES REINA Dec 08, 2017 14:21
[2017-12-08] MEDS ORDERED: KEPPRA1000 MG ORAL (15:04)
[2017-12-08] MEDS ORDERED: D5 1/2NS 1000ml IV ONE ×2 (15:59)
--- NOTE | 2017-12-08 18:00 | Discharge Summary ---
Discharge Summary Hospital Course Date of Admission Dec 06, 2017 at 08:32 Date of Discharge Dec 08, 2017 at 16:00 Admitting Diagnosis intractible seizure HPI Hanh Magana is a 22 year old female who was admitted on Dec 06, 2017 at 08 :32 for Intractible Seizure Hospital Course [id number] Discharge Discharge Disposition Patient was discharged to [facility] Discharge Diagnoses: Annita Marcum NP Dec 08, 2017 18:00
--- NOTE | 2017-12-09 01:15 | Discharge Summary 2 SIG ---
DATE OF ADMISSION: 12/06/2017 DATE OF DISCHARGE: 12/08/2017 [employer]: Moncho Rodarte M.D. BRIEF HOSPITAL COURSE: The patient is a 22-year-old female, who lives at home, presented to ED secondary to seizures. She has seizure disorder and is on Keppra. On evaluation at ED, CT scan of the head showed no acute intracranial hemorrhage, mass effect, or cortical edema. Blood work showed slight leukocytosis with WBC 12.8. Urine toxicology was positive for marijuana. HCG was negative. She had a chest x-ray done that showed no acute disease. She was then admitted for evaluation of seizure disorder. She underwent neuro evaluation with Dr. Rodarte. She was given extra dose of Keppra IV piggyback, was placed on Ativan p.r.n., and was given IV hydration. Since admission, there has been no episodes of seizure breakthrough. The patient had mild baseline cognitive impairment and had developed seizure since she was a teenager. Keppra was increased to 1000 mg b.i.d. She was eventually cleared for discharge home. FINAL DIAGNOSES: 1. Acute exacerbation of seizure disorder. 2. Generalized epileptic seizure. DISPOSITION: The patient was discharged home. DISCHARGE MEDICATIONS: Increase Keppra to 1000 mg b.i.d. DISCHARGE INSTRUCTIONS: Follow up with neurologist and PMD in a week. Jeff Fraser D.O. I have been assigned to dictate discharge summary on this account and I was not involved in the patient's management. Annita Marcum N.P. DR: GABRIELA JOB#: [id number] CC: LUIS FERNANDO
== END 2017-12-08 16:00 | disposition home or self-care (01) | DRG 53 ==
LOC: EDBD 06:36 → EMR 07:00 → 4W 08:32 → EDBEDREQ 08:41 → 4W 11:22
DX: G40.409 Other generalized epilepsy and epileptic syndromes, not intractable, without status epilepticus (principal); D72.829 Elevated white blood cell count, unspecified
CPT/HCPCS: 36415; 70450; 71045; 80048; 80053; 80299; 80307; 81003; 81025; 82550; 82553; 82962; 83690; 85007; 85025; 96374; 97803; 99284; 99285